=== PATIENT | male | born 2000 | race Two or more races ===

== ENCOUNTER 2022-10-08 22:38 | Emergency (ER) | payer MEDICAID ==
[~2022-10-08] VITALS: Ht 170.2 cm; Wt 93.0 kg
[2022-10-08] MEDS ORDERED: LEVE500T20 PO (23:28)
[2022-10-08] MEDS ORDERED: PHEN100C10 PO (23:28)
[2022-10-09 00:05] VITALS: BP 128/81
[2022-10-09] MEDS ORDERED: PHENYTOIN SODIUM 100 MG ER CAPSULE PO ONE (00:30)
== END 2022-10-09 02:38 | disposition home or self-care (01) ==
LOC: EMS 22:41
DX: G40.909 Epilepsy, unspecified, not intractable, without status epilepticus (principal); F17.210 Nicotine dependence, cigarettes, uncomplicated; Z90.49 Acquired absence of other specified parts of digestive tract; Z98.890 Other specified postprocedural states
CPT/HCPCS: 80185; 99283

== ENCOUNTER 2022-10-23 00:03 | Emergency (ER) | payer MEDICAID ==
[~2022-10-23] VITALS: Ht 170.2 cm; Wt 92.0 kg
[~2022-10-23 00:03] MED LIST: LEVE500T20 PO; PHEN100C10 PO
[2022-10-23] MEDS ORDERED: LevETIRAcetam 500 MG in DEXTROSE 5%-WATER 100 ML IV ONE (00:30)
[2022-10-23 00:34] LABS: BASOPHILS % (AUTO) 0.6 % (0.0-2.0); EOSINOPHILS % (AUTO) 3.3 % (1.0-6.0); HEMATOCRIT 41.2 % (41-53); HEMOGLOBIN 13.8 g/dL (13.5-17.5); LYMPHOCYTES # (AUTO) 1.3 K/uL (1.0-4.8); LYMPHOCYTES % (AUTO) 20.8 % (22.0-44.0); MEAN CORPUSCULAR HEMOGLOBIN 30.8 pg (26.0-34.0); MEAN CORPUSCULAR HGB CONC 33.5 G/dL (31.0-37.0); MEAN CORPUSCULAR VOLUME 92 fL (80-100); MONOCYTES # (AUTO) 0.6 K/uL (0.1-1.0); MONOCYTES % (AUTO) 9.3 % (2.0-9.0); NEUTROPHILS # (AUTO) 4.2 K/uL (1.8-7.7); PLATELET COUNT (AUTO) 194 K/uL (150-450); RED BLOOD CELL COUNT(AUTO) 4.47 MIL/uL (4.50-5.90); RED CELL DISTRIBUTION WIDTH 13.7 % (11.5-14.5)
[2022-10-23 00:48] LABS: ANION GAP 5 mmol/L (8-16); CALCIUM, TOTAL 8.3 mg/dL (8.8-10.5); CARBON DIOXIDE 27 mmol/L (22-29); CHLORIDE 106 mmol/L (98-107); CREATININE 0.75 mg/dL (0.60-1.30); GLOMERULAR FILTR. RATE CALC > 60 mL/min (>60); GLUCOSE,RANDOM 93 mg/dL (70-110); POTASSIUM 3.3 mmol/L (3.5-5.1); SODIUM SERUM 138 mmol/L (136-145)
[2022-10-23 00:54] LABS: ALANINE AMINOTRANSFERASE 55 U/L (12-78); ALBUMIN 3.6 g/dL (3.4-5.0); ALKALINE PHOSPHATASE 85 U/L (46-116); ASPARTATE AMINOTRANSFERASE 60 U/L (15-37); BILIRUBIN,TOTAL 0.2 mg/dL (0.1-1.0); PHENYTOIN (DILANTIN) 2.4 mcg/mL (10.0-20.0); TOTAL PROTEIN, SERUM 6.7 g/dL (6.4-8.2)
[2022-10-23] MEDS ORDERED: PHENYTOIN SODIUM 1,000 MG in SODIUM CHLORIDE 0.9% 150 ML IV ONE (01:45)
[2022-10-23 01:51] LABS: GLUCOMETER DEV NAME(LOC) ER.6; GLUCOSE,POINT OF CARE 113 MG/DL (70-110)
[2022-10-23 03:56] VITALS: BP 111/65
== END 2022-10-23 05:07 | disposition home or self-care (01) ==
LOC: EMS 00:05
DX: G40.909 Epilepsy, unspecified, not intractable, without status epilepticus (principal); F17.210 Nicotine dependence, cigarettes, uncomplicated; Z90.49 Acquired absence of other specified parts of digestive tract; Z98.890 Other specified postprocedural states
CPT/HCPCS: 99291; 96365; 96366; 80053; 80185; 82962; 85025; 36415; J0712; J1165; J7060; J7050